=== PATIENT | female | born 1965 | race Caucasian/White ===

== ENCOUNTER 2017-04-12 09:02 | Day surgery (SDC) | payer OTHER ==
--- NOTE | 2017-04-11 16:49 | GHP ---
[f rep st] PREOP HISTORY AND PHYSICAL DATE OF OPERATION: 04/12/2017 HISTORY OF PRESENT ILLNESS: The patient presented to [facility] earlier this year, back in December. She had injection therapy for nerve entrapment and a hammertoe correction on her right 2nd toe. 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 She has had excruciating pain since then. She has had a history of sesamoiditis/capsulitis , which responded very well to injection therapy. At this point, we have tried orthotics, injections, decreased activity, padding, wider shoes and physical therapy; all of which failed to alleviate her symptoms. She wants the sensory nerves removed. PAST MEDICAL HISTORY: She is a relatively healthy 51-year-old female. She has had a history of mitral valve prolapse, which is stable currently. She has had mild viral hepatitis with no long-term problems. She had viral meningitis, but no long-term sequela. PAST SURGICAL HISTORY: She has had knee surgery, tonsil surgery, gallbladder removed, multiple foot surgeries without complication or problems to anesthesia. ALLERGIES: She has no known drug allergies. MEDICATIONS: Currently, she takes herbal supplements, multivitamin. REVIEW OF SYSTEMS: At her preop appointment, she was alert and oriented, not having any difficulties with breathing. She denied any cardiac arrhythmias, shortness of breath, GI distress, neurologic, dermatologic or other musculoskeletal problems. PHYSICAL EXAMINATION: HEART: Pulses show regular rate and rhythm. 2/4 on the dorsal and posterior tibial arteries. Capillary flow less than 5 seconds to digits x10. NEUROLOGIC: She has a positive Tinel sign on the dorsal 2nd toe, as well as the 2nd and 3rd intermetatarsal spaces. She has a fallen transverse metatarsal arch with a splay foot deformity. Otherwise, her neurologic evaluation is within normal limits. SKIN: Normal temperature, texture and turgor, with normal hair distribution to the digital level. MUSCULOSKELETAL: She has normal muscle mass and tone to the anterior lateral and posterior leg muscles, as well as intrinsic arch muscles. She does, again, have some splaying of the forefoot, for which she wears a tighter shoe. It definitely makes the nerve problem worse. She does have a positive Nuzhat sign at the 2nd and 3rd intermetatarsal spaces plantarly. She has the dorsal nerve on the 2nd metatarsophalangeal joint which has the positive Tinel's. She has pain-free range of motion to the ankle, subtalar, midtarsal joints on both feet. 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 PLAN: Procedure is excision of nerves, right foot. Preoperatively, we discussed risks and complications including residual pain and delayed healing. The patient understood. Consent form was signed. She was given both oral and written postop instructions along with prescriptions for Percocet 10/325, #20, 1 tab p.o. q.4-6 h p.r.n. pain. She was also given Phenergan 12.5 mg, #20, 1 tab p.o. q.6 h as needed for nausea. She was given my cell phone number for 24- hour call should she have any problems or questions postoperatively. /[id number]/MODL MTDD
[2017-04-12] MEDS ORDERED: MIDAZOLAM 2 MG/2 ML VIAL ONE ×3 (09:58→10:12)
[2017-04-12] MEDS ORDERED: ceFAZolin 1 GM/5 ML SYR ONE (10:01)
[2017-04-12] MEDS ORDERED: CEFAZOLIN 1 GM/DEXTROSE/50 ML BAG IV ONE (10:01)
[2017-04-12] MEDS ORDERED: BUPIVACAINE 0.25% 30 ML SDV ONE (10:02)
[2017-04-12] MEDS ORDERED: DEXAMETHASONE 4 MG/ML VIAL ONE (10:02)
[2017-04-12] MEDS ORDERED: LIDOCAINE 1% 300 MG/30 ML SDV ONE (10:02)
[2017-04-12] MEDS ORDERED: fentaNYL 100 MCG/2 ML INJ ONE (10:11)
[2017-04-12] MEDS ORDERED: PROPOFOL 200 MG/20 ML VIAL ONE (10:12)
== END 2017-04-12 12:50 | disposition home or self-care (01) ==
LOC: FSGY 09:02
PROVIDERS: ATTEND Podiatrist
PROC: 01BG0ZZ Excision of Tibial Nerve, Open Approach (ICD-10-PCS; principal; 2017-04-12 10:00)
DX: G57.61 Lesion of plantar nerve, right lower limb (principal); F32.9 Major depressive disorder, single episode, unspecified
CPT/HCPCS: J0690; J1100; J2250; J2704; J3010

== ENCOUNTER 2018-05-20 08:45 | Observation (INO) | payer OTHER ==
--- NOTE | 2018-05-20 08:46 | PDGENHP ---
History & Physical Chief Complaint: Dysmenorrhea, AUB, pelvic pain History of Present Illness: Jad is a 52 yo who I have been seeing in clinic for longstanding chronic pelvic pain, severe dysmenorrhea with suspected diagnosis of endometriosis, and abnormal uterine bleeding. She has been worked up with labs, pelvic US and options discussed for treatment going forward. Failed hormonal options and would like to proceed with more definitive surgical approach. Pertinent Past, Social, Family History: Non-contributory. Relevant Physical Exam: NAD, LCTAB, RRR. Assessment & Plan Assessment: Preop: Robotically-assisted TLH, BSO, cystoscopy. - Routine preop orders. - Weight-based Ancef, no need for heparin. - Will get 200mg of Pyridium PO in PREOP. - Will stay overnight, 23 hr obs, likely home tomorrow AM. MIR
[2018-05-20] MEDS ORDERED: PHENAZOPYRIDINE HCL 200 MG TAB PO ONE (09:06)
[2018-05-20] MEDS ORDERED: ceFAZolin 2 GM/DEXTROSE 100 ML IV ONE (09:06)
[2018-05-20] MEDS ORDERED: LIDOCAINE 1% 2 ML INJ ID PRN (09:07)
[2018-05-20] MEDS ORDERED: LR 1,000 ML IV ONE (09:07)
--- NOTE | 2018-05-20 09:15 | PDANEPAE ---
ANE History of Present Illness 52 year old female for robotic hysterectomy. ANE Past Medical History - Cardiovascular History Hx Hypertension: No Hx Arrhythmias: No Hx Chest Pain: No Hx Coronary Artery / Peripheral Vascular Disease: No Hx CHF / Valvular Disease: No Hx Palpitations: No Cardiovascular History Comment: MITRAL VALVE PROLAPSE - OCCAS IRREG BEATS - Pulmonary History Hx COPD: No Hx Asthma/Reactive Airway Disease: No Hx Recent Upper Respiratory Infection: No Hx Oxygen in Use at Home: No Hx Sleep Apnea: No Sleep Apnea Screening Result - Last Documented: Positive - Neurologic History Hx Cerebrovascular Accident: No Hx Seizures: Yes Hx Dementia: No Neurologic History Comment: ANOREXIA INDUCE SEIZURE 30 YRS AGO - Endocrine History Hx Diabetes: No Obesity: no - Renal History Hx Renal Disorders: No - Liver History Hx Hepatic Disorders: No Hepatic History Comment: CHOLECYSTECTOMY - Neurological & Psychiatric Hx Hx Neurological and Psychiatric Disorders: Yes Neurological / Psychiatric History Comment: PAST HX - DEPRESSION, ANOREXIA IN PAST, OCD - Cancer History Hx Cancer: No - Congenital Disorder History Hx Congenital Disorders: No - GI History Hx Gastrointestinal Disorders: Yes Gastrointestinal History Comment: HX ULCERS - Other Health History Other Health History: NONE - Chronic Pain History Chronic Pain: Yes (FEET & HIP) - Surgical History Prior Surgeries: SHANEKA FEET SX X10 (CYST). TONSILLECTOMY. CHOLECYSTECTOMY. KNEE - L SCOPE. R KNEE EXPLORATORY. DEVIATED SEPTUM ANE Review of Systems Review of systems is: negative Review of Systems: - Exercise capacity Exercise capacity: >=4 METS METS (RN): 6 METS ANE Patient History - Allergies Allergies/Adverse Reactions: No Known Allergies Allergy (Verified 05/07/18 11:44) - Home Medications Home medications: home medication list seen and reviewed Home Medications: Cholecalciferol Vit D3 [Vitamin D3 (*)] 1,000 units PO DAILY 05/07/18 [Last Taken 3 Days Ago ~05/17/18] Herbals/Supplements -Info Only 1 ea PO DAILY 05/07/18 [Last Taken 3 Days Ago ~] Multivitamins [Multivitamin (*)] 1 each PO DAILY 05/07/18 [Last Taken 3 Days Ago ~05/17/18] [place]-3 Fatty Acids [Fish Oil 1000 mg (*)] 1,000 mg PO DAILY 05/07/18 [Last Taken 3 Days Ago ~05/17/18] - NPO status NPO Status: no food or drink >8 hours - Anes Hx Anes Hx: no prior problems - Smoking Hx Smoking Status: Never smoked Marijuana use: No - Alcohol Use Alcohol Use: Rarely - Family Anes Hx Family Anes Hx: neg - N/A Family Hx Anesthesia Complications: NONE ANE Labs/Vital Signs - Vital Signs Vital Signs: reviewed preoperatively; see RN documention for details Height: 162.56 cm Weight: 47.627 kg ANE Physical Exam - Airway Neck exam: FROM Mallampati Score: Class 2 Mouth exam: normal dental/mouth exam - Pulmonary Pulmonary: no respiratory distress - Cardiovascular Cardiovascular: regular rate and rhythym - ASA Status ASA Status: II ANE Anesthesia Plan Anesthesia Plan: general endotracheal anesthesia Total IV Anesthesia: No
[2018-05-20] MEDS ORDERED: MIDAZOLAM 2 MG/2 ML VIAL IVP ONE (09:44)
[2018-05-20] MEDS ORDERED: fentaNYL 100 MCG/2 ML INJ ONE ×2 (09:50→12:29)
[2018-05-20] MEDS ORDERED: PROPOFOL/EMULSION 500 MG/50 ML BOTTLE IV ONE (09:50)
[2018-05-20] MEDS ORDERED: LIDOCAINE 2% 5 ML SDV ONE (09:51)
[2018-05-20] MEDS ORDERED: ROCURONIUM 50 MG/5 ML VIAL ONE (09:51)
[2018-05-20] MEDS ORDERED: DEXAMETHASONE 4 MG/ML VIAL ONE (09:59)
[2018-05-20] MEDS ORDERED: ONDANSETRON 4 MG/2 ML VIAL ONE (09:59)
[2018-05-20] MEDS ORDERED: EPINEPHrine 1 MG/ML INJ ONE (10:33)
[2018-05-20] MEDS ORDERED: BUPIVACAINE 0.25% 30 ML SDV ONE (10:33)
[2018-05-20] MEDS ORDERED: KETOROLAC 30 MG/1 ML SDV ONE (11:42)
[2018-05-20] MEDS ORDERED: SUGAMMADEX SODIUM 200 MG/2 ML VIAL IVP ONE (11:42)
[2018-05-20] MEDS ORDERED: NALOXONE HCL 0.4 MG/ML INJ IVP PRN (11:51)
[2018-05-20] MEDS ORDERED: ONDANSETRON 4 MG/2 ML VIAL IVP PRN ×2 (11:51→13:03)
[2018-05-20] MEDS ORDERED: PHENYLEPHRINE HCL 100 MCG/ML SYR IVP PRN (11:51)
[2018-05-20] MEDS ORDERED: HYDROmorphONE/DILAUDID 1 MG/ML INJ IVP PRN (11:51)
[2018-05-20] MEDS ORDERED: LR 500 ML IV PRN (11:51)
[2018-05-20] MEDS: fentaNYL 100 MCG/2 ML INJ IVP PRN ×3 (12:30→13:14)
--- NOTE | 2018-05-20 12:57 | SUROPNOTE ---
K[facility] Operative Report - Surgery Date of Operation: 05/20/18 Surgeon: Konstantin Kay Woods Boss: MILTON Reed Anesthesiologist: Kody Mcrae Anesthesia: GET(General Endotracheal) Pre-op Diagnosis: Dysmenorrhea, Pelvic pain, AUB Post-op Diagnosis: Same Procedure: Robotically-assisted TLH, BSO, cystoscopy Findings: Noraml uterus, tubes and ovaries, no evidence of endometriosis Inf/Abcess present in the surg proc area at time of surgery?: No EBL: Minimal (25cc) Complications: None Specimen(s): Uterus, cervix, bilateral tubes and ovaries Technique: The patient was taken to the operating room where general anesthesia induced with an endotracheal tube. A time-out was performed. She was given weight-based antibiotics before any incisions were made. She was positioned in low lithotomy in yellow-fin stirrups and an exam under anesthesia was performed. She was prepped and draped in normal sterile fashion. A Fitzgerald catheter and uterine manipulator (Vcare) were placed. Turning our attention to port placement, we began by marking and then injecting local anesthetic subcutaneously at our planned trocar sites. An 10mm incision was then made in the base of the umbilicus along prior scar transversely. A Veress needle was placed intra abdominally while tenting up on the abdominal wall. Saline drop test was used to suggest intra-abdominal placement as well as low opening insufflation pressures. The abdomen was insufflated to 15 mmHg with CO2 gas. A robotic 8 mm camera trocar was then placed into the abdominal cavity directly with ease. Camera inserted and a scan of the abdominal cavity revealed no evidence of injury upon entry. Additional lateral ports were placed evenly space in an arc from that umbilical site - She has 4 in total, two robotic 8mm ports in LLQ and RLQ and two 10mm ports one in umbilicus for camera and LUQ human assist. The patient was placed in steep Trendelenburg position and bowel flipped cephalad to provide excellent visualization of pelvic structures. Upon inspection of the abdomen, findings were as noted above. The robot was side-docked at the patient's right hip and instruments introduced into the abdomen under direct visualization. Monopolar scissors as well as PK bipolar forceps were used. We began by directly visualizing peristalsing ureters on both sides - distant from our planned dissection sites. We first began by elevating and amputation the right fallopian tube and ovary using combination of monopolar and bipolar energy as well as cold scissors. Following this we came through the right round ligament - the anterior and posterior leaves of the broad ligament. Tho posterior leaf was brought down to the colpotomy cup and the anterior was brought down to the level of the peritoneal bladder reflection and then across to start the bladder flap to the midline. The uterine arteries on that side were skeletonized and cauterized, but not divided yet. We next turned our attention of the left side where the same procedure was performed in the same fashion. Coming through the left round and across with the anterior leaf of the broad on the left side to meet the dissection on the right completing the bladder flap. Then completed careful dissection of the bladder off the lower uterine segment and cervix which came down nicely with minimal scar tissue. The left uterines were skeletonized, cauterized and then divided. We lastly divided the right uterines. Following this the colpotomy cup was nicely visible circumferentially. The monopolar scissors were used to create the colpotomy - combination of cut and coag current. The uterus was removed vaginally with both fallopian tubes without issue. A ELO drainage bulb was placed in the vagina to maintain pneumoperitoneum during cuff closer. The suture was retrieved laparoscopically from the bulb - 180 0-Vlock and the vaginal cuff was closed laparoscopically with a single running stitch with care taken to include healthy bites of bilateral uterosacral ligaments to help prevent against future prolapse. The vaginal cuff and pedicles were then irrigated with normal saline and found to be hemostatic. Both ureters were seen to be freely peristalsing, distant from any surgical sites. The robot was undocked. The fitzgerald was removed. Cystoscopy was performed confirming intact bladder with no apparent thermal or sharp injuries. Bilateral UOs demonstrated strong efflux of Pyridium-stained urine. Following this the Fitzgerald was not replaced, a vaginal packing was not placed. The trocars were removed and the abdomen was desufflated. The skin incisions were closed with 40 Monocryl with single subcuticular stitches and then covered with Dermabond. The patient tolerated the procedure well. All sponge, lap and needle and instrument counts were announced as correct x2. The patient was taken to the PACU in stable condition. I was scrubbed and present for the entire case.
[2018-05-20] MEDS ORDERED: MAGNESIUM HYDROXIDE 30 ML UDCUP PO PRN (13:03)
[2018-05-20] MEDS ORDERED: LACTULOSE 20 GM/30 ML UDCUP PO PRN (13:03)
[2018-05-20] MEDS ORDERED: PROMETHAZINE HCL 25 MG/ML INJ IVP PRN (13:03)
[2018-05-20] MEDS ORDERED: POLYETHYLENE GLYCOL 3350 17 GM PKT PO PRN (13:03)
[2018-05-20] MEDS ORDERED: BISACODYL 10 MG SUPP PR PRN (13:03)
[2018-05-20] MEDS ORDERED: TEMAZEPAM 15 MG CAP PO PRN (13:03)
[2018-05-20] MEDS ORDERED: D5W 1/2 NS W/ 20 KCl/L 1,000 ML IV SCH (13:15)
[2018-05-20] MEDS: KETOROLAC 30 MG/1 ML SDV IVP SCH ×2 (14:29→23:06)
[2018-05-20] MEDS: ACETAMINOPHEN 500 MG TAB PO SCH ×2 (14:29→22:10)
[2018-05-20] MEDS: IBUPROFEN 800 MG TAB PO SCH ×2 (14:29→23:32)
--- NOTE | 2018-05-20 15:55 | POSTANESTH ---
Post Anesthetic Evaluation Cardiovascular Status: Normal, Stable, Similar to Pre-Op Cond Respiratory Status: Normal, Stable, Similar to Pre-op Cond. Level of Consciousness/Mental Status: Can Participate in Eval, Alert and Oriented Pain Control: Adequate, Prn Tx Ordered Nausea/Vomiting Control: Adequate, Prn Tx Ordered Complications Possibly Related to Anesthesia: None Noted
--- NOTE | 2018-05-20 18:04 | PDDCSUM ---
Discharge Summary Discharge Summary: Jad underwent uncomplicated case, fitzgerald was removed in OR. Pain over her first night was controlled with IV agents that were transitioned to PO meds the next AM. That next AM POD1 she was ambulating, tolerating diet, pain well controlled. DC'd home with plan to fu with me in 2 and 6 wks. Day 1 labs: Hgb 12.8 g/dL (12.6-16.3) 05/21/18 04:43 Hct 39.1 % (38.0-47.0) 05/21/18 04:43 Patient ABO/Rh O POSITIVE 05/20/18 09:06 Antibody Screen NEGATIVE 05/20/18 09:06
--- NOTE | 2018-05-20 18:04 | SOAPPROG ---
SOAP Progress Note Assessment/Plan: Assessment: POD0 s/p RaTLH, BSO, cystoscopy - for chronic pain, dysmenorrhea, AUB. Incisions CDI, looking good. Appropriate pain control and advancements thus far. Will put in DC orders and print scripts/dc instructions tonight - if she is doing well in the AM and meeting criteria then she is fine to dc home without my seeing her. Will f/u in clinic in 2 and 6 wks. MIR Subjective: Saw Jad this evening of POD0 - Doing well, pain well controlled. Hasn't tried much for diet yet. Has been able to void without issue. No bowel function yet. Objective: Vital Signs Temp Pulse Resp BP Pulse Ox 36.7 C 54 L 18 95/56 L 97 05/20/18 17:44 05/20/18 17:44 05/20/18 17:44 05/20/18 17:44 05/20/18 17:44 Laboratory Results 05/20/18 09:06 05/19/18 05/20/18 05/21/18 05:59 05:59 05:59 Intake Total 1875 Output Total 945 Balance 930 Physical Exam - Physical Exam General Appearance: alert, no apparent distress Abdomen: non-tender, soft, other (Incisions CDI with Dermabond), No distended, No guarding ICD10 Worksheet Patient Problems: Problems Problem Status Onset Dysmenorrhea Acute Pelvic pain in female Acute
[2018-05-20] MEDS: oxyCODONE IR 5 MG TAB PO PRN ×2 (18:50→23:06)
[2018-05-20] MEDS: SENNOSIDES/DOCUSATE SODIUM TAB PO SCH (22:11)
[2018-05-21] MEDS: ACETAMINOPHEN 500 MG TAB PO SCH ×2 (05:28→11:22)
[2018-05-21] MEDS: oxyCODONE IR 5 MG TAB PO PRN (05:28)
[2018-05-21] MEDS: KETOROLAC 30 MG/1 ML SDV IVP SCH (05:29)
[2018-05-21] MEDS: IBUPROFEN 800 MG TAB PO SCH (05:48)
[2018-05-21 08:14] VITALS: BP 87/49
[2018-05-21] MEDS: SENNOSIDES/DOCUSATE SODIUM TAB PO SCH (11:05)
== END 2018-05-21 12:13 | disposition home or self-care (01) ==
LOC: F3E 08:45 → EDSTATUS 10:00 → F3E 14:11
PROVIDERS: ADMIT Obstetrics & Gynecology; ATTEND Obstetrics & Gynecology
DX: N94.6 Dysmenorrhea, unspecified (principal); R10.2 Pelvic and perineal pain; N93.9 Abnormal uterine and vaginal bleeding, unspecified; I34.1 Nonrheumatic mitral (valve) prolapse
CPT/HCPCS: G0378; J0171; J0690; J1100; J1885; J2250; J2405; J2704; J3010

== ENCOUNTER 2018-08-08 08:55 | Day surgery (SDC) | payer OTHER ==
--- NOTE | 2018-08-07 14:33 | GHP ---
DATE OF ADMISSION: 08/08/2018 DATE OF SURGERY: Wednesday, August 08, 2018 PLANNED PROCEDURE: Arthrotomy of the left ankle, anterior bone spur removal. The patient presented to [facility] initially in the summer of 2017, with a judy f complaint of pain on the anterior margin of her left ankle. She had not been seen since 2017. She had been running 5Ks. She is a very competitive female runner, runs for time, has run competitively her entire life. She has generally been in excellent health, although she has been anorexic previou sly. Currently, she is well nourished, doing very well health-benitez. In her past, she has had viral hepatitis with no long-term lung problems. She has had mitral valve prolapse, which is stable. She has had pneumonia, which is stable. In 2010, she had viral meningitis with no long-term sequelae. S he has had knee surgery, tonsillectomy, gallbladder removal, and multiple foot surgeries, all without complication or problems to anesthesia. ALLERGIES: She has no known drug allergies. HABITS: She has never used tobacco in any form. Denies alcohol use. FAMILY HISTORY: She has no family history of unusual foot or health issues that she can recall. Mot her is still living in her 90s. REVIEW OF SYSTEMS: At her preop appointment, she denied having any recent or chronic headaches, visi on, hearing, nasal or throat problems. She denies any cardiac arrhythmias, chest pain, shortness of breath, GI distress, neurologic, dermatologic, or other musculoskeletal problems. PHYSICAL EXAMINATION: Today, she has pulses regular rate and rhythm dorsal, pedal and posterior tibi al arteries. Capillary fill is less than 5 seconds to digits x10. NEUROLOGIC: Sharp, dull, light t ouch proprioception all intact and symmetric to the digital level. She had some very mild paresthesi as recently when she did a 5K on the ball of her right foot. She is status post neuritic neuroma exc ision on the right foot. Again, has healed well with this. Possibly having some minor recurrence at that point, but she said this is very minor compared to the left ankle. She has normal skin tempera ture, texture and turgor with normal hair distribution down to the digital level bilateral that is ve ry symmetric. MUSCULOSKELETAL: Normal 5/5 manual muscle testing to the anterior, lateral, and poste rior leg muscles, as well as the intrinsic arch muscles. She has no evidence of weakness or pain in the muscles. She has slight tenderness on the anterior margin of the ankle, left. Significant pain with direct pressure right over the anterior ankle just lateral to the tibialis anterior and the exte nsor longus tendon. She has no other palpable tenderness or pain with range of motion of the ankle, subtalar, or midtarsal joints on either foot. She has a high arch foot type with high flexibility ac ross the midtarsal joint. She does wear orthotics with good motion control tennis shoes, which keep her feet stable during her high impact running activities. IMAGING: X-rays were taken, show a slight anterior bone spur on the anterior margin of the tibia, as well as the neck of the talus. She is a toe runner, so she jams the ankle dorsally, which has contr ibuted to the production of this bone spur on the front of the ankle. 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 Planned p rocedure is arthrotomy with bone spur removal. At her preoperative appointment, we did discuss risks and complications of the procedure, including residual pain, possible long-term arthritis. She unde rstood. Consent form was signed. She was given both oral and written postoperative instructions ayala wills with prescription for Percocet 10/325, #30, one tab by mouth every 4-6 hours as needed for pain, a nd she was also given a prescription for Phenergan 12.5 mg, #20, one tablet by mouth every 8 hours as needed to prevent nausea. She will be followed up x3 days postop at [facility] . She was given my cell phone number for 24-hour call should she have any problems or questions, and she will be followed up on Saturday. /[id number]/MODL
[2018-08-08] MEDS ORDERED: LR 1,000 ML IV ONE (09:17)
[2018-08-08] MEDS ORDERED: LIDOCAINE 1% 2 ML INJ ID PRN (09:17)
[2018-08-08] MEDS ORDERED: MIDAZOLAM 2 MG/2 ML VIAL IVP ONE (09:53)
--- NOTE | 2018-08-08 09:55 | PDANEPAE ---
ANE History of Present Illness foot ANE Past Medical History - Cardiovascular History Hx Hypertension: No Hx Arrhythmias: No Hx Chest Pain: No Hx Coronary Artery / Peripheral Vascular Disease: No Hx CHF / Valvular Disease: No Hx Palpitations: No Cardiovascular History Comment: MITRAL VALVE PROLAPSE - OCCAS IRREG BEATS - Pulmonary History Hx COPD: No Hx Asthma/Reactive Airway Disease: No Hx Recent Upper Respiratory Infection: No Hx Oxygen in Use at Home: No Hx Sleep Apnea: No Sleep Apnea Screening Result - Last Documented: Negative - Neurologic History Hx Cerebrovascular Accident: No Hx Seizures: Yes Hx Dementia: No Neurologic History Comment: ANOREXIA INDUCE SEIZURE 30 YRS AGO - Endocrine History Hx Diabetes: No Hypothyroid: No Hyperthyroid: No Obesity: no - Renal History Hx Renal Disorders: No - Liver History Hx Hepatic Disorders: No Hepatic History Comment: CHOLECYSTECTOMY - Neurological & Psychiatric Hx Hx Neurological and Psychiatric Disorders: Yes Neurological / Psychiatric History Comment: HX - DEPRESSION, ANOREXIA IN PAST. SEES THERAPIST - Cancer History Hx Cancer: No Cancer History Comment: BASAL CELL REMOVED - Congenital Disorder History Hx Congenital Disorders: No - GI History Hx Gastrointestinal Disorders: Yes Gastrointestinal History Comment: HX ULCERS IN COLLEGE - Other Health History Other Health History: NONE - Chronic Pain History Chronic Pain: Yes (SHANEKA FEET) - Surgical History Prior Surgeries: HYSTERECTOMY. SHANEKA FEET SX X10 (CYST). TONSILLECTOMY. CHOLECYSTECTOMY. KNEE - L SCOPE. R KNEE EXPLORATORY. DEVIATED SEPTUM ANE Review of Systems Review of Systems: - Exercise capacity Exercise capacity: >=4 METS METS (RN): 5 METS ANE Patient History - Allergies Allergies/Adverse Reactions: No Known Allergies Allergy (Verified 05/07/18 11:44) - Home Medications Home medications: home medication list seen and reviewed Home Medications: Cholecalciferol Vit D3 [Vitamin D3 (*)] 1,000 units PO DAILY 05/07/18 [Last Taken 08/05/18] Herbals/Supplements -Info Only 1 ea PO DAILY 05/07/18 [Last Taken 08/05/18] Multivitamins [Multivitamin (*)] 1 each PO DAILY 05/07/18 [Last Taken 08/05/18] [place]-3 Fatty Acids [Fish Oil 1000 mg (*)] 1,000 mg PO DAILY 05/07/18 [Last Taken 08/05/18] - NPO status NPO Status: no food or drink >8 hours - Anes Hx Anes Hx: no prior problems - Smoking Hx Smoking Status: Never smoked - Family Anes Hx Family Hx Anesthesia Complications: NONE ANE Labs/Vital Signs - Vital Signs Height: 161.29 cm Weight: 49.895 kg ANE Physical Exam - Airway Mallampati Score: Class 2 Mouth exam: normal dental/mouth exam - Pulmonary Pulmonary: no respiratory distress - Cardiovascular Cardiovascular: regular rate and rhythym - ASA Status ASA Status: II ANE Anesthesia Plan Anesthesia Plan: GA with mask
[2018-08-08] MEDS ORDERED: LIDOCAINE 2% 2 ML INJ ONE (10:00)
[2018-08-08] MEDS ORDERED: PROPOFOL/EMULSION 500 MG/50 ML BOTTLE IV ONE (10:00)
[2018-08-08] MEDS ORDERED: BUPIVACAINE 0.25% 30 ML SDV ONE (10:27)
[2018-08-08] MEDS ORDERED: ceFAZolin 2 GM in NS 100 ML IV ONE (10:28)
[2018-08-08] MEDS ORDERED: LIDOCAINE 1% 300 MG/30 ML SDV ONE (10:28)
[2018-08-08] MEDS ORDERED: ceFAZolin 1 GM/5 ML SYR ONE (10:29)
[2018-08-08] MEDS ORDERED: EPINEPHrine 1 MG/ML INJ ONE (10:30)
[2018-08-08] MEDS ORDERED: ceFAZolin 2 GM/DEXTROSE 100 ML IV ONE (11:00)
[2018-08-08] MEDS ORDERED: fentaNYL 100 MCG/2 ML INJ IVP PRN (11:50)
[2018-08-08] MEDS ORDERED: ALBUTEROL 3 ML DEYVIAL IH PRN (11:50)
[2018-08-08] MEDS ORDERED: LR 500 ML IV PRN (11:50)
[2018-08-08] MEDS ORDERED: ONDANSETRON 4 MG/2 ML VIAL IVP PRN (11:50)
[2018-08-08] MEDS ORDERED: NALOXONE HCL 0.4 MG/ML INJ IVP PRN (11:50)
--- NOTE | 2018-08-08 11:52 | POSTANESTH ---
Post Anesthetic Evaluation Cardiovascular Status: Normal, Stable Respiratory Status: Normal, Stable Level of Consciousness/Mental Status: Can Participate in Eval, Mildly Sleepy, Arousable Pain Control: Adequate, Prn Tx Ordered Nausea/Vomiting Control: Adequate, Prn Tx Ordered Complications Possibly Related to Anesthesia: None Noted
[2018-08-08 13:19] VITALS: BP 92/61
--- NOTE | 2018-08-11 10:51 | GOP ---
DATE OF OPERATION: 08/08/2018 SURGEON: Sacha Eubanks DPM ANESTHESIA: IV MAC, plus a local infiltration of approximately 5 cc of 1% lidocaine plain and 5 cc o f 0.25% Marcaine plain. ANESTHESIOLOGIST: Semaj Marquez MD PREOPERATIVE DIAGNOSIS: Bone spurs, left ankle. POSTOPERATIVE DIAGNOSIS: Bone spurs, left ankle. PROCEDURE PERFORMED: Excision of bone spurs, left ankle with ankle arthrotomy, synovectomy. FINDINGS: ESTIMATED BLOOD LOSS: Less than 10 cc. DESCRIPTION OF PROCEDURE: The patient was taken to the operating room, placed in a supine position. After local and MAC anesthesia, the left lower extremity was elevated, prepped and draped in the usu al sterile OR fashion achieving a sterile field about the entire distal aspect of the extremity. Attention was directed to the anterior aspect of the left ankle. There was a high ankle tourniquet u tilized intraoperatively. Total ankle tourniquet time was less than 1 hour. The foot was elevated, exsanguinated, tourniquet was inflated to 225 mmHg. Attention was directed to the anterior aspect of the ankle where approximately an inch and a half blanca ear incision was made. Dissection was carried through the flexor retinaculum and the tibialis anteri or was identified and retracted medially. There was a superficial dorsal cutaneous nerve branch that was noted as being adhesed dorsally into the top of the foot and this was bluntly dissected utilizin g a hemostat, very carefully dissected and retracted away from the incision site. The nerve was pres erved throughout the entire procedure. The anterior joint capsule was identified, entered via linear incision, approximately 1 inch, reflected medially and laterally. There was a dorsal bone spur abou t a cm wide on the dorsal aspect of the talus where the anterior margin of the tibia is jamming onto the dorsal aspect of the talus. This bone was removed utilizing an osteotome and rasped smooth utili zing a Flynn rasp. There was a slight bony prominence on the anterior margin of the tibia and this wa s removed utilizing a bone spur also. There was a significant amount of synovitis noted in the lining of the joint and this was all debrided out of the area. The entire area as well as the joint were f lushed copiously with dilute antibiotic solution. Any and all synovitis that were found within the l ining of the joint was removed from the operative site. At this point, I did dorsiflex and plantar f brianne the joint intraoperatively to assure that there were no bony spurs elsewhere and to make sure dylan t there were no osteochondral defects or loss of cartilage in any other part of the joint and none wa s noted. At this point, the anterior joint capsule was reapproximated utilizing 3-0 Vicryl in a simpl e interrupted suture. The retinaculum was reapproximated utilizing 4-0 Vicryl in a horizontal mattre ss suture. Subcutaneous closure was carried out via 4-0 Vicryl in a horizontal mattress suture and s kin closure was carried out via 4-0 Prolene in a horizontal mattress suture. It should be noted that the entire area was copiously flushed prior to closing the area, reinspected 3 different times for a ny residual bony prominences or anything unusual and nothing was noted intraoperatively after the flu sh of the area. Once the incision was closed, sterile Adaptic, 4x4, Chase and Coban were placed over the extremity. Tourniquet was released. All digits immediately returned to a uniform pink color wi th normal capillary refill less than 5 seconds to digits x10. The patient will be followed up in 3 days postop at [facility]. All questions w ere answered in recovery and she has my cell phone number for 24-hour call should she have any proble ms or questions. DRAINS: There were no drains. COMPLICATIONS: None, and no problems with anesthesia. /[id number]/MODL
== END 2018-08-08 13:45 | disposition home or self-care (01) ==
LOC: FSGY 08:55
PROVIDERS: ATTEND Podiatrist
DX: M25.772 Osteophyte, left ankle (principal); M65.872 Other synovitis and tenosynovitis, left ankle and foot; I34.1 Nonrheumatic mitral (valve) prolapse
CPT/HCPCS: J0171; J0690; J2250; J2704